=== PATIENT | male | born 1955 ===

== ENCOUNTER 2016-11-11 08:27 | Observation (INO) | payer OTHER ==
[2016-11-05 17:11] LABS: ANION GAP 13 mEq/L (8-16); CARBON DIOXIDE 27 mEq/l (22-31); CHLORIDE 100 mEq/L (97-110); CREATININE 0.9 mg/dL (0.7-1.3); GLOMERULAR FILTRATION RATE > 60; GLUCOSE 105 mg/dL (70-100); POTASSIUM 4.1 mEq/L (3.5-5.2); SODIUM 140 mEq/L (134-144)
--- NOTE | 2016-11-08 16:05 | CPEKG ---
Heart Rate: 91 RR Interval: 659 P-R Interval: 160 QRSD Interval: 90 QT Interval: 360 QTC Interval: 443 P [place]: 41 QRS [place]: 124 T Wave [place]: 54 EKG Severity - ABNORMAL ECG - EKG Impression: SINUS RHYTHM EKG Impression: LEFT POSTERIOR FASCICULAR BLOCK EKG Impression: LOW VOLTAGE IN FRONTAL LEADS Electronically Signed By: Paresh Howe 08-Nov-2016 17:12:18
[2016-11-11] MEDS ORDERED: LIDOCAINE 1% 2 ML INJ ONE (08:51)
[2016-11-11] MEDS ORDERED: LIDO/EPI 1% **Not for Epidural 20 ML MDV ONE ×2 (09:55→11:45)
[2016-11-11] MEDS ORDERED: PROPOFOL/EMULSION 500 MG/50 ML BOTTLE IV ONE (10:45)
[2016-11-11] MEDS ORDERED: fentaNYL 250 MCG/5 ML INJ ONE (10:45)
[2016-11-11] MEDS ORDERED: HYDROCOD/APAP 7.5/325 IN 15ML UDCUP PO PRN (10:50)
[2016-11-11] MEDS ORDERED: PROMETHAZINE HCL 25 MG TAB PO PRN (10:54)
[2016-11-11] MEDS ORDERED: D5W LR 1,000 ML IV SCH (11:00)
[2016-11-11] MEDS ORDERED: ROCURONIUM 50 MG/5 ML VIAL ONE (11:18)
[2016-11-11] MEDS ORDERED: LIDOCAINE 2% 5 ML SDV ONE (11:18)
[2016-11-11] MEDS ORDERED: SUCCINYLCHOLINE CHLORIDE*ANESTHESIA ONLY*200 MG/10 ML SYR IVP ONE (11:19)
[2016-11-11] MEDS ORDERED: DEXAMETHASONE 4 MG/ML VIAL ONE (11:19)
[2016-11-11] MEDS ORDERED: PHENYLEPHRINE HCL 100 MCG/ML SYR ONE (11:20)
[2016-11-11] MEDS ORDERED: METHOTREXATE 2.5 MG TAB PO SCH (11:30)
[2016-11-11] MEDS ORDERED: ENALAPRILAT DIHYDRATE 1.25 MG/ML VIAL ONE (12:44)
[2016-11-11] MEDS ORDERED: INSULIN REGULAR HUMAN 100 UNIT/ML ONE (12:45)
[2016-11-11] MEDS ORDERED: fentaNYL 100 MCG/2 ML INJ ONE ×2 (12:49→13:14)
[2016-11-11] MEDS ORDERED: OXYCODONE/APAP 5/325 TAB ONE (13:19)
[2016-11-11] MEDS: DEXAMETHASONE 4 MG/ML VIAL IVP SCH ×2 (14:45→20:56)
--- NOTE | 2016-11-11 17:23 | SOAPPROG ---
SOAP Progress Note Assessment/Plan: pt s/p sinus surgery. Doing well. pain controlled. O- packs in place, some oozing Plan: Pt s/p sinus surgery. Stable. Seen by Dr. Shrestha. Plan for discharge tomorrow. 11/11/16 17:21 Objective: Vital Signs Temp Pulse Resp BP Pulse Ox 37.2 C 93 18 111/74 97 11/11/16 16:10 11/11/16 16:10 11/11/16 16:10 11/11/16 16:10 11/11/16 16:10 Laboratory Results 11/05/16 16:10 11/10/16 11/11/16 11/12/16 05:59 05:59 05:59 Intake Total 1350 Output Total 125 Balance 1225 - Pending Discharge Pending Discharge Within 24 Hours: Yes Pending Discharge Date: 11/12/16 Pending Discharge Time: 11:00 ICD10 Worksheet Patient Problems: Problems Problem Status Onset Sinusitis Acute - ICD10 Problem Qualifiers (1) Sinusitis Qualifiers: Sinusitis location: S Chronicity: C Recurrence: R
[2016-11-11] MEDS: OXYCODONE/APAP 5/325 TAB PO PRN (18:36)
[2016-11-11] MEDS: metFORMIN HCL 500 MG TAB PO SCH (20:56)
[2016-11-11] MEDS ORDERED: GABAPENTIN 300 MG CAP PO SCH (21:00)
[2016-11-12] MEDS: OXYCODONE/APAP 5/325 TAB PO PRN ×2 (01:36→06:47)
[2016-11-12 05:16] VITALS: RESP 18
[2016-11-12] MEDS: DEXAMETHASONE 4 MG/ML VIAL IVP SCH (05:21)
[2016-11-12 07:26] VITALS: BP 153/86; PULSE 98; TEMP 97.8; O2SAT 89
[2016-11-12] MEDS: metFORMIN HCL 500 MG TAB PO SCH (08:19)
--- NOTE | 2016-11-12 08:23 | SOAPPROG ---
SOAP Progress Note Assessment/Plan: pt s/p sinus surgery. Doing well. pain controlled. Pt seen by Dr. Barber. O- packs in place, minimal oozing Packs pulled at bedside. Tolerated well. Plan: Pt s/p sinus surgery. Stable. Post op instructions discussed. 11/12/16 08:22 Objective: Vital Signs Temp Pulse Resp BP Pulse Ox 36.6 C 98 18 153/86 H 89 L 11/12/16 07:25 11/12/16 07:25 11/12/16 07:25 11/12/16 07:25 11/12/16 07:25 Laboratory Results 11/05/16 16:10 11/11/16 11/12/16 11/13/16 05:59 05:59 05:59 Intake Total 1350 Output Total 125 Balance 1225 ICD10 Worksheet Patient Problems: Problems Problem Status Onset Sinusitis Acute - ICD10 Problem Qualifiers (1) Sinusitis Qualifiers: Sinusitis location: S Chronicity: C Recurrence: R
--- NOTE | 2016-11-12 08:37 | SOAPPROG ---
SOAP Progress Note Assessment/Plan: Assessment: Doing well. Pack removed at the bedside. No bleeding. Afrin instilled. Bottle given to him. He has scripts. Plan:Afrin for 3 days prn. NSI. F/u with Dr. Shrestha as scheduled. 11/12/16 08:36 Objective: Vital Signs Temp Pulse Resp BP Pulse Ox 36.6 C 98 18 153/86 H 89 L 11/12/16 07:25 11/12/16 07:25 11/12/16 07:25 11/12/16 07:25 11/12/16 07:25 Laboratory Results 11/05/16 16:10 11/11/16 11/12/16 11/13/16 05:59 05:59 05:59 Intake Total 1350 Output Total 125 Balance 1225 ICD10 Worksheet Patient Problems: Problems Problem Status Onset Sinusitis Acute
[2016-11-12] MEDS ORDERED: ROSUVASTATIN CALCIUM 40 MG TAB PO SCH (09:00)
[2016-11-12] MEDS ORDERED: LISINOPRIL/HCTZ 10/12.5 MG 1 EA TAB PO SCH ×2 (09:00)
[2016-11-12] MEDS ORDERED: OMALIZUMAB SC SCH ×2 (09:00)
[2016-11-12] MEDS ORDERED: FOLIC ACID 1 MG TAB PO SCH (09:00)
[2016-11-12] MEDS ORDERED: MONTELUKAST SODIUM 10 MG TAB PO SCH (09:00)
[2016-11-12] MEDS ORDERED: ESCITALOPRAM OXALATE 10 MG TAB PO SCH (09:00)
[2016-11-12] MEDS ORDERED: PANTOPRAZOLE SODIUM 40 MG TAB PO SCH (09:00)
[2016-11-12] MEDS ORDERED: TAMSULOSIN HCL 0.4 MG CAP PO SCH (09:00)
--- NOTE | 2016-11-18 13:47 | GOP ---
[f rep st] OPERATIVE REPORT DATE OF OPERATION: 11/11/2016 SURGEON: Randolph Shrestha MD ANESTHESIA: General endotracheal. PREOPERATIVE DIAGNOSIS: 1. Nasal airway obstruction secondary to marked inferior turbinate hypertrophy. 2. Nasal polyps. 3. Chronic sinusitis. 4. Septal deformity. POSTOPERATIVE DIAGNOSIS: 1. Nasal airway obstruction secondary to marked inferior turbinate hypertrophy. 2. Nasal polyps. 3. Chronic sinusitis. 4. Septal deformity. PROCEDURE PERFORMED: Bilateral total endoscopic ethmoidectomy with submucosal resection of the infe rior turbinates and nasal polypectomy, plus nasal septal reconstruction. FINDINGS: 1. Chronic sinusitis treated by bilateral total endoscopic ethmoidectomy and bilateral endoscopic m axillary antrostomy. 2. Nasal polyposis treated by bilateral nasal polypectomy. 3. Inferior turbinate hypertrophy treated by submucosal and then partial resection of the inferior turbinates. 1. Nasal septal deformity treated by nasal septal reconstruction. ESTIMATED BLOOD LOSS: 100 mL. DESCRIPTION OF PROCEDURE: The patient was placed on the operating table in a supine position. Afte r induction of adequate general endotracheal anesthesia, a sterile drape was performed. Pledgets so aked in 0.5% Sriram-Synephrine were inserted into the right and left side of the nose. In addition, th e soft tissues overlying the inferior turbinates were infiltrated utilizing 1% lidocaine with 1:100, 000 parts of epinephrine. Marked inferior turbinate was noted, and before visualization of the sinu ses could be performed, submucosal resection of the inferior turbinates was necessary. Initially, t he left inferior turbinate was examined. The 4 mm polyp blade was used to remove a portion of the l eft inferior turbinate. This resulted in significant but incomplete reduction of the left inferior turbinate. The residual turbinate tissue was then trimmed back using angled scissors. Once partial resection of the inferior turbinate had been completed, excellent exposure of the middle meatus was obtained. The left middle turbinate was then infractured and the scopes were brought in. Polyps w ere noted to be present in the left middle meatus. These were removed using a 4 mm polyp shaver, as well as a suction up biter. Total endoscopic ethmoidectomy proceeded. Care was given to the avoid ance of injury to the lamina papyracea and the fovea ethmoidalis. Once total endoscopic ethmoidecto my had been completed on the left, the natural ostium of the left maxillary sinus was identified. I t was widely opened using front biting and backbiting forceps. Attention was directed to the right side of the nose. Marked inferior turbinate hypertrophy was noted to be present. The 4 mm blade wa s used to perform submucosal resection of the inferior turbinate. However, this resulted in inadequ ate reduction. Therefore, partial resection of the inferior turbinate was performed using curved sc issors. The cut margin of the inferior turbinate was treated with the suction Bovie electrocautery. Attention was then directed to the left middle meatus. Due to septal deviation high in the nose, the middle meatal structures could not be visualized. Therefore, infiltration of the nasal septal m ucosa was performed utilizing 1% lidocaine with 1:100,000 parts epinephrine. A left hemitransfixion incision was created and carried down to the layer deep to the mucoperichondrium. A flap was eleva reynold on the left side of the nose in a submucoperichondrial plane. Just anterior to the most signifi cant septal deformity, the septal cartilage was incised. Deformed septal bone and cartilage were re moved, markedly straightening the nasal septum. At this point, attention was redirected toward endo scopic ethmoidectomy. The right middle turbinate was infractured and polypoid tissue was removed fr om the middle meatus. Once total endoscopic ethmoidectomy had been completed, the natural ostium of the right maxillary sinus was identified. It was then widely opened with front biting and backbiti ng forceps. At this point, attention was redirected to the nasal septum. Portions of septal bone, as well as straightened septal cartilage were reinserted between the septal leaves. The hemitransfi xion incision was then closed with three 3-0 chromic sutures placed in a transfixion fashion. The s eptal leaves were reapproximated utilizing four 4-0 plain gut sutures placed in a [id number] h quilting fashion. Once this had been completed, Telfa was cut and inserted into the right and lef t-sided nose to act as nasal packing. This was draped into the middle meatus and then passed along the nasal septum, low in the nose between the septum and the inferior turbinates. At this point, th e patient was awakened and transferred to the postanesthesia recovery area in stable condition. PROCEDURE PLANNED: Bilateral total endoscopic ethmoidectomy with submucosal resection of the inferi or turbinates and nasal polypectomy. FLUID REPLACEMENT: 1200 mL. COMPLICATIONS: None. /[id number]/MODL
== END 2016-11-12 09:12 | disposition home or self-care (01) ==
LOC: F3E 08:27
PROVIDERS: ADMIT Otolaryngology; ATTEND Otolaryngology
PROC: 09TU4ZZ Resection of Right Ethmoid Sinus, Percutaneous Endoscopic Approach (ICD-10-PCS; principal; 2016-11-11 10:00)
PROC: 09TV4ZZ Resection of Left Ethmoid Sinus, Percutaneous Endoscopic Approach (ICD-10-PCS; principal; 2016-11-11 10:00)
PROC: 09CR4ZZ Extirpation of Matter from Left Maxillary Sinus, Percutaneous Endoscopic Approach (ICD-10-PCS; principal; 2016-11-11 10:00)
DX: J32.4 Chronic pansinusitis (principal); J33.0 Polyp of nasal cavity; G47.33 Obstructive sleep apnea (adult) (pediatric); J45.909 Unspecified asthma, uncomplicated; I10 Essential (primary) hypertension; E11.40 Type 2 diabetes mellitus with diabetic neuropathy, unspecified; K21.9 Gastro-esophageal reflux disease without esophagitis
CPT/HCPCS: 31237; 31255; 31256; 93005; G0378; J0330; J1100; J1815; J2370; J2704; J3010